=== PATIENT | female | born 1985 | race Caucasian/White ===

== ENCOUNTER 2018-01-19 09:54 | Outpatient (REF) | payer OTHER, SELFPAY ==
--- NOTE | 2018-01-19 09:10 | PAPFT_PTH ---
[id number]GE/SX: 32/F ROOM: RE01/19/[address]: Slim Downey : 1985 BED: DIS: 01/19/2018 SPEC #: [id number] RECD: 01/20/18 13:12 STATUS: RASHAAD REQ #: [id number] HOMER: 01/19/18 09:[address]: Slim Downey DEPT: [facility] Cytology RECD BY: Obdulia Thomas Tissues: 1 - CX/ENDOCX FOR PAP SMEARS Procedures: PAP THIN PREP/[facility] Screening HPV DNA PROBE Comments: [id number]
== END 2018-01-19 10:14 ==
LOC: NCHCN 09:54
PROVIDERS: Visit Provider Family Medicine
DX: Z00.00 Encounter for general adult medical examination without abnormal findings (principal); Z12.4 Encounter for screening for malignant neoplasm of cervix; Z11.51 Encounter for screening for human papillomavirus (HPV)
CPT/HCPCS: 88142; 87624

== ENCOUNTER 2023-02-12 09:12 | Outpatient (REF) | payer MEDICAID, SELFPAY ==
--- NOTE | 2023-02-12 08:05 | PAPFT_PTH ---
PATIENT: Ninfa Hunter LOC: [facility]#:[id number] AGE/SX: 37/F ROOM: RE02/12/[address]: EL: 1985 BED: DIS: 02/12/2023 SPEC #: [id number] RECD: 02/12/23 17:10 STATUS: RASHAAD MARTINEZ #: [id number] HOMER: 02/12/23 08:[address]: Alexandria Suggs DEPT: [facility] Cytology RECD BY: Obdulia Thomas Tissues: 1 - CX/ENDOCX FOR PAP SMEARS Procedures: PAP THIN PREP/[facility] Screening HPV DNA PROBE Comments: [id number]
== END 2023-02-12 09:13 | disposition home or self-care (01) ==
LOC: NCHCN 09:12
PROVIDERS: PCP Family Medicine; Visit Provider Family Medicine
DX: Z12.4 Encounter for screening for malignant neoplasm of cervix (principal); Z11.51 Encounter for screening for human papillomavirus (HPV)
CPT/HCPCS: 88142; 87624